=== PATIENT | female | born 1950 | race Two or more races ===

== ENCOUNTER 2024-08-28 11:09 | Emergency (ER) | payer OTHER ==
[~2024-08-28] VITALS: Ht 144.8 cm; Wt 57.2 kg
[2024-08-28] MEDS ORDERED: TIROSINT50 MCG (11:44)
[2024-08-28] MEDS ORDERED: TIROSINT75 MCG PO (11:44)
[2024-08-28] MEDS ORDERED: ZETIA10 MG (11:45)
[2024-08-28] MEDS ORDERED: LEVOTHYROXINE13 MCG (11:45)
[2024-08-28 14:32] LABS: HEMATOCRIT 41.1 % (36.0-45.00); HEMOGLOBIN 13.9 g/dL (12.0-15.00); MEAN CELL VOLUME 89.6 fL (80.00-100.00); MEAN CORPUSCULAR HEMOGLOBIN 30.3 pg (27.00-32.0); MEAN CORPUSCULAR HGB CONC 33.8 g/dl (32.0-36.0); PLATELET COUNT 205 K/uL (150-450); RED BLOOD COUNT 4.59 M/uL (4.00-6.00); RED CELL DISTRIBUTION WIDTH 14.7 % (11.5-14.5)
[2024-08-28 14:52] LABS: CALCIUM 9.6 mg/dL (8.5-10.1); CREATININE SERUM 0.97 mg/dL (0.55-1.02); GFR 56.14; POTASSIUM 4.81 mEq/L (3.5-5.1)
[2024-08-28 15:52] LABS: PH,URINE 6.5 (5.0-8.0); URINE APPEARANCE Clear; URINE BILIRRUBIN Negative (NEGATIVE); URINE BLOOD Moderate; URINE COLOR Dark Yellow; URINE GLUCOSE Negative (NEGATIVE); URINE KETONE Negative (NEGATIVE); URINE LEUKOCYTE Large; URINE NITRATE Positive; URINE PROTEIN Negative (NEGATIVE)
[2024-08-28 15:55] LABS: URINE BACTERIA 19.5 uL (0.0-1933); URINE EPITHELIAL CELLS 19.7 uL (0.0-38.8); URINE RBC 20.7 uL (0.0-20.8)
[2024-08-28 16:10] LABS: URINE MUCUS NEGATIVE
[2024-08-28] MEDS ORDERED: CEFTRIAXONE SODIUM 1,000 MG VIAL IM STA (16:20)
== END 2024-08-28 17:09 | disposition home or self-care (01) ==
LOC: ER 11:12
PROVIDERS: General Practice
DX: N39.0 Urinary tract infection, site not specified (principal)